=== PATIENT | female | born 1945 | race Caucasian/White ===

== ENCOUNTER 2021-03-13 13:45 | Observation (INO) ==
[2021-03-13] MEDS ORDERED: NS 500 ML IV 500 ML IV ONE ×2 (15:25→15:59)
[2021-03-13 16:01] LABS: BASOPHILS % (AUTO) 0.4 % (0.2-1.0); EOSINOPHILS % (AUTO) 0.3 % (0.9-2.9); HEMATOCRIT 42.2 % (36.0-47.0); HEMOGLOBIN 13.9 g/dL (12.0-16.0); LYMPHOCYTES # (AUTO) 1.1 X10^3/uL (1.3-2.9); LYMPHOCYTES % (AUTO) 24.1 % (21.0-51.0); MEAN CORPUSCULAR HGB CONC 32.8 g/dL (33.0-35.0); MEAN CORPUSCULAR VOLUME 88.4 fL (80.0-100.0); MEAN PLATELET VOLUME 8.4 fL (7.4-11.0); MONOCYTES # (AUTO) 0.5 x10^3/uL (0.3-0.8); NEUTROPHILS % (AUTO) 64.2 % (42.0-75.0); RED BLOOD COUNT 4.78 X10^6/uL (3.5-5.4); RED CELL DISTRIBUTION WIDTH 15.3 % (11.6-16.5); WHITE BLOOD COUNT 4.7 X10^3/uL (3.6-10.0)
--- NOTE | 2021-03-13 16:06 | DR.GENAD ---
HPI Time Seen Time Seen by Provider: 03/13/21 15:25 Complaint/Symptoms Chief Complaint Doctors Comments: 75 y/o female, started having altered mental status last pm. Was found by family very confused. Went to [facility], reportedly had a blood sugar in the 40's. Pt was d/c'd form there. Glucose has been up and down since. Takes 2 oral hypoglycemics, no insulin. Pt had Covid last week, overall doing better. Still with cough, productive of some mucous, has dyspnea at times. Still not right today, having more confusion than usual. Glucose was 47 this am, 235 this afternoon. Denies pain. No nausea, vomiting, abdominal pain, urinary difficultyies, N/V/D. COVID-19 Coronavirus risk:travel/contact w/high risk person: Yes Has patient experienced Coronavirus symptoms: Yes Coronavirus symptoms experienced: Shortness of Breath Nurses notes reviewed Nurses Notes Review: Yes Source History Provided: Patient and Family Member Mode of Arrival Mode of Arrival: Wheelchair PMH PMH Past Medical History: Dementia and Diabetes Past Medical History Comment: Frequent UTIs Surgical History: Hysterectomy Family History Family Medical History Comment: Non contributory Social History Does patient currently use any type of tobacco product: No Have you used tobacco products in the last 12 months: No Alcohol Use: None Do you use any recreational Drugs:: No Travel Risk Coronavirus risk:travel/contact w/high risk person: Yes Has patient experienced Coronavirus symptoms: Yes Coronavirus symptoms experienced: Shortness of Breath ROS Review of Systems Constitutional: Weakness Eyes: No Symptoms Reported ENTM: No Symptoms Reported Respiratoy: Productive Cough and Short of Breath Cardiovascular: No Symptoms Reported Gastrointestinal/Abdominal: No Symptoms Reported Genitourinary: No Symptoms Reported Neurological: Weakness Musculoskeletal: No Symptoms Reported Integumentary: No Symptoms Reported Hematologic/Lymphatic: No Symptoms Reported Psychiatric: No Symptoms Reported All Other Systems: Reviewed and Negative PE Vital Signs Vitals: Temperature 97.8 F Pulse Rate [Left Brachial] 62 Respiratory Rate 20 Blood Pressure [Left Arm] 166/72 O2 Sat by Pulse Oximetry 95 General General Appearance: Alert and In No Apparent Distress Head Head Exam: Normal Inspection Eyes Eye exam: Normal Appearance, PERRL and EOMI ENT ENT Exam: Normal Exam and Mucous Membranes Moist Nose Exam: Normal Nose Exam Mouth Exam: Normal Inspection Neck Neck Exam: Normal Inspection and Full ROM Chest Chest Inspection: Normal Inspection Respiratory Respiratory Exam: Normal Lung Sounds Bilat; negative Accessory Muscle Use and Respiratory Distress Respiratory Exam: Bilateral: Clear to Auscultation Cardiovascular Cardiovascular Exam: Regular Rate, Normal Rhythm and Normal Heart Sounds Abdominal Exam Abdominal Exam: Normal Inspection, Normal Bowel Sounds and Soft; negative Tenderness Extremities Extremities Exam: Normal Inspection and Full ROM; negative Edema Back Back Exam: Normal Inspection Neurologic Neurological Exam: Alert and CN II-XII Intact; negative Motor Sensory Deficit Psychiatric Psychiatric Exam: Normal Affect Skin Skin Exam: Warm and Dry MDM Differential Diagnosis Differential Diagnosis: CVA, electrolyte abn, hypoxia, UTI COURSE Treatment Treatment: 75 y/o female with altered mental status last pm, not as bad today, but still off. Glucose varying, reportedly low last pm, 47 this am , better after eating. W/u initiated. Given IV fluids. Will check baseline labs, CXR, head CT. 1821 - w/u overall acceptable. Ct of head without acute abnormalities. Labs overall acceptable. Discussed with her MD, Dr Max. Will admit for observation, will hold her diabetes meds. Pt is still + for Covid. ROR Labs Reviewed Laboratory Results Reviewed?: Yes Result Diagrams: 03/15/21 04:19 03/15/21 04:19 Laboratory: WBC 4.7 X10^3/uL (3.6-10.0) 03/13/21 15: RBC 4.78 X10^6/uL (3.5-5.4) 03/13/21 15:23 Hgb 13.9 g/dL (12.0-16.0) 03/13/21 15:23 Hct 42.2 % (36.0-47.0) 03/13/21 15:23 MCV 88.4 fL (80.0-100.0) 03/13/21 15:23 MCH 29.0 pg (27.0-34.0) 03/13/21 15: MCHC 32.8 g/dL (33.0-35.0) L 03/13/21 15:23 RDW 15.3 % (11.6-16.5) 03/13/21 15:23 Plt Count 294 X10^3/uL (150.0-450.0) 03/13/21 15: MPV 8.4 fL (7.4-11.0) 03/13/21 15:23 Neut % (Auto) 64.2 % (42.0-75.0) 03/13/21 15:23 Lymph % (Auto) 24.1 % (21.0-51.0) 03/13/21 15:23 [place] % (Auto) 11.0 % (0.0-13.0) 03/13/21 15:23 Eos % (Auto) 0.3 % (0.9-2.9) L 03/13/21 15:23 Baso % (Auto) 0.4 % (0.2-1.0) 03/13/21 15:23 Neut # (Auto) 3.0 x10^3/uL (2.2-4.8) 03/13/21 15:23 Lymph # (Auto) 1.1 X10^3/uL (1.3-2.9) L 03/13/21 15:23 [place] # (Auto) 0.5 x10^3/uL (0.3-0.8) 03/13/21 15:23 Eos # (Auto) 0.0 x10^3/uL (0.0-0.2) 03/13/21 15:23 Baso # (Auto) 0.0 X10^3/uL (0.0-0.1) 03/13/21 15: Absolute Nucleated RBC 0.1 /100WBC 03/13/21 15:23 Sodium 141 mmol/L (136-145) 03/13/21 15:23 Corrected Sodium 145 mmol/L (136-145) 03/13/21 15:23 Potassium 4.8 mmol/L (3.5-5.1) 03/13/21 15:23 Chloride 103 mmol/L (98-107) 03/13/21 15:23 Carbon Dioxide 27.3 mmol/L (21-32) 03/13/21 15:23 BUN 37 mg/dL (7-18) H 03/13/21 15:23 Creatinine 1.80 mg/dL (0.55-1.02) H 03/13/21 15:23 Est GFR (MDRD) Af Amer 35 (>60) L 03/13/21 15:23 Est GFR (MDRD) Non-Af 29 (>60) L 03/13/21 15:23 Glucose 248 mg/dL (65-99) H 03/13/21 15:23 Calcium 9.2 mg/dL (8.5-10.1) 03/13/21 15:23 Corrected Calcium 9.8 mg/dL (8.5-10.1) 03/13/21 15: Total Bilirubin 0.30 mg/dL (0.2-1.0) 03/13/21 15:23 AST 22 Units/L (15-37) 03/13/21 15:23 ALT 21 Units/L (12-78) 03/13/21 15:23 Alkaline Phosphatase 104 Units/L (46-116) 03/13/21 15: Total Protein 7.7 g/dL (6.4-8.2) 03/13/21 15: Albumin 3.3 g/dL (3.4-5.0) L 03/13/21 15:23 Globulin 4.4 g/dL (2.5-4.5) 03/13/21 15: Albumin/Globulin Ratio 0.8 Ratio (1.1-2.1) L 03/13/21 15:23 Specimen Type Clean catch urine 03/13/21 18:35 Urine Color Yellow (YELLOW) 03/13/21 18:35 Urine Appearance Clear (CLEAR) 03/13/21 18:35 Urine pH 5.0 (5.0 - 8.0) 03/13/21 18:35 Ur Specific [place] 1.015 (1.000-1.030) 03/13/21 18:35 Urine Protein 2+ (NEGATIVE) 03/13/21 18:35 Urine Glucose (UA) 4+ (NEGATIVE) 03/13/21 18:35 Urine Ketones Negative (NEGATIVE) 03/13/21 18:35 Urine Occult Blood 1+ (NEGATIVE) 03/13/21 18:35 Urine Nitrite Negative (NEGATIVE) 03/13/21 18:35 Urine Bilirubin Negative (NEGATIVE) 03/13/21 18:35 Urine Urobilinogen Normal (NORMAL) 03/13/21 18:35 Ur Leukocyte Esterase Negative (NEGATIVE) 03/13/21 18:35 Urine RBC None seen /HPF (0-3) 03/13/21 18:35 Urine WBC None seen /HPF (0-5) 03/13/21 18:35 Ur Squamous Epith Cells Negative /HPF (NEGATIVE) 03/13/21 18:35 Urine Bacteria Negative /HPF (NEGATIVE) 03/13/21 18:35 Ur Culture Indicated? No/not indicated 03/13/21 18:35 SARS CoV-2 RNA Rapid URMILA Positive (NEGATIVE) A 03/13/21 17:44 XRAY XRAY Interpreted by: Both X-ray Results: CT , CXR - both without acute abnpormalities. Opioid Opioid Risk Tool Age (Puneet box if 16-45): No History of Preadolescent Sexual Abuse: No Total: 0 Total Score Risk Category: Low Risk Copyright: [facility] predicting aberrant behaviors Diagnosis Discharge Problem: Hypoglycemia associated with type 2 diabetes mellitus Altered mental status Qualifiers: Altered mental status type: disorientation Qualified Code(s): R41.0 - Disorientation, unspecified Instructions Instructions: Type 2 Diabetes Mellitus, Diagnosis, Adult Confusion Diabetes Mellitus and Sick Day Management COVID-19 Frequently Asked Questions Prone Position Therapy Near-Syncope, [id number] 10 Things You Can Do to Manage Your COVID-19 Symptoms at Home - CDC (08/18/2019) COVID-19: Quarantine vs. Isolation - [facility] [place] (02/03/2020)
[2021-03-13 16:14] LABS: ALBUMIN 3.3 g/dL (3.4-5.0); CALCIUM 9.2 mg/dL (8.5-10.1); CARBON DIOXIDE 27.3 mmol/L (21-32); COR CA(FOR HYPOALB) 9.8 mg/dL (8.5-10.1); CREATININE 1.8 mg/dL (0.55-1.02); TOTAL PROTEIN 7.7 g/dL (6.4-8.2)
--- NOTE | 2021-03-13 16:35 | CT ---
HISTORYAMSSTUDYBRAIN W/O CONCOMPARISONNoneTECHNIQUEMultiple axial CT images of the head without contrast. Dose reduction techniques including Automated Exposure Control (AEC) and adjustment of mA and kV were utilized.FINDINGSNo visible intracranial hemorrhage or overt acute infarct. No ventriculomegaly or midline shift. Basal cisterns appear patent. Globes intact. Included paranasal sinuses and mastoid air cells appear aerated. Skull base and calvarium appear intact.IMPRESSIONNo acute intracranial finding.Electronically signed by: Aristeo Carrillo (Mar 13, 2021 16:34:23)
--- NOTE | 2021-03-13 16:53 | RAD ---
CHEST, 1 VIEWHISTORY: AMS, RECENT COVIDStudy: Single view of the chest.Comparison:NoneFindings:The cardiomediastinal silhouette is normal.No focal consolidations, pleural effusions or pneumothorax. Osseous structures demonstrate no acute abnormality.IMPRESSION:1. No acute cardiopulmonary process.Electronically signed by: CALVIN ALVES (Mar 13, 2021 16:52:00)
[2021-03-13 18:32] LABS: BILIRUBIN,URINE NEGATIVE (NEGATIVE); BLOOD/HEMOGLOBIN,URINE 1+ (NEGATIVE); GLUCOSE, URINE 4+ (NEGATIVE); KETONES,URINE NEGATIVE (NEGATIVE); LEUKOCYTE ESTERASE ,URINE NEGATIVE (NEGATIVE); NITRITES,URINE NEGATIVE (NEGATIVE); PROTEIN,URINE 2+ (NEGATIVE); UROBILINOGEN,URINE NORMAL (NORMAL)
[2021-03-13 18:35] LABS: APPEARANCE,URINE CLEAR (CLEAR); COLOR,URINE YELLOW (YELLOW)
[2021-03-13 19:15] LABS: BACTERIA,URINE NEGATIVE /HPF (NEGATIVE); RBC,URINE NONE SEEN /HPF (0-3); SQUAMOUS EPITHELIAL CELL,UR NEGATIVE /HPF (NEGATIVE)
[2021-03-13] MEDS ORDERED: PEPCID TAB 20 MG PO PRN (22:04)
[2021-03-13] MEDS ORDERED: D5 1/2 NS 1,000 ML 1,000 ML IV ONE (22:16)
[2021-03-13] MEDS: D5 1/2 NS 1,000 ML 1,000 ML IV SCH (22:25)
[2021-03-13 23:13] VITALS: BMI 29.2
[2021-03-13] MEDS ORDERED: NEURONTIN CAP 300 MG ONE (23:23)
[2021-03-13] MEDS ORDERED: ZOCOR TAB 40 MG PO ONE (23:23)
[2021-03-13] MEDS: ZOCOR TAB 40 MG PO SCH (23:37)
[2021-03-13] MEDS: NEURONTIN CAP 300 MG PO SCH (23:37)
[2021-03-14 06:16] LABS: BASOPHILS % (AUTO) 0.5 % (0.2-1.0); EOSINOPHILS % (AUTO) 1.1 % (0.9-2.9); HEMATOCRIT 36.2 % (36.0-47.0); LYMPHOCYTES # (AUTO) 1.7 X10^3/uL (1.3-2.9); LYMPHOCYTES % (AUTO) 36.9 % (21.0-51.0); MEAN CORPUSCULAR HGB CONC 33.1 g/dL (33.0-35.0); MEAN CORPUSCULAR VOLUME 87.7 fL (80.0-100.0); MEAN PLATELET VOLUME 8.5 fL (7.4-11.0); MONOCYTES # (AUTO) 0.5 x10^3/uL (0.3-0.8); MONOCYTES % (AUTO) 10.7 % (0.0-13.0); NEUTROPHILS # (AUTO) 2.3 x10^3/uL (2.2-4.8); NEUTROPHILS % (AUTO) 50.8 % (42.0-75.0); RED BLOOD COUNT 4.12 X10^6/uL (3.5-5.4); RED CELL DISTRIBUTION WIDTH 14.9 % (11.6-16.5); WHITE BLOOD COUNT 4.6 X10^3/uL (3.6-10.0)
[2021-03-14 06:47] LABS: ALANINE AMINOTRANSFERASE 17 Units/L (12-78); ALBUMIN 2.7 g/dL (3.4-5.0); ALKALINE PHOSPHATASE 82 Units/L (46-116); ASPARTATE AMINO TRANSFERASE 24 Units/L (15-37); BLOOD UREA NITROGEN 27 mg/dL (7-18); CALCIUM 8.3 mg/dL (8.5-10.1); CARBON DIOXIDE 26.4 mmol/L (21-32); CHLORIDE 105 mmol/L (98-107); COR CA(FOR HYPOALB) 9.3 mg/dL (8.5-10.1); CREATININE 1.17 mg/dL (0.55-1.02); SODIUM 141 mmol/L (136-145); TOTAL PROTEIN 6.3 g/dL (6.4-8.2); eGFR NON BLACK RACES 48 (>60)
[2021-03-14] MEDS ORDERED: PATIENT'S HOME MEDICATION (Levocetirizine 5 mg tablet) PO SCH (09:00)
[2021-03-14] MEDS: ARICEPT TAB 10 MG PO SCH (09:35)
[2021-03-14] MEDS: MOBIC TAB 15 MG PO SCH (09:35)
[2021-03-14] MEDS: PROCARDIA XL PO SCH (09:35)
[2021-03-14] MEDS: ZYLOPRIM PO SCH (09:35)
[2021-03-14] MEDS: LEXAPRO PO SCH (09:35)
[2021-03-14] MEDS: COLCRYS TAB 0.6 MG PO SCH (09:35)
[2021-03-14] MEDS: BROVANA IN SCH ×2 (09:45→20:00)
[2021-03-14] MEDS: PULMICORT NEB TX 0.5 MG NEB SCH ×2 (09:45→20:00)
[2021-03-14] MEDS ORDERED: D5 1/2 NS 1,000 ML 1,000 ML IV ONE (11:06)
[2021-03-14] MEDS: D5 1/2 NS 1,000 ML 1,000 ML IV SCH ×2 (11:13→16:44)
[2021-03-14] MEDS ORDERED: NS 250 ML IV 250 ML IV ONE (13:20)
[2021-03-14] MEDS ORDERED: ZITHROMAX INJ 500 MG VIAL IV ONE (13:20)
[2021-03-14] MEDS: ZITHROMAX INJ 500 MG VIAL 500 MG in NS 250 ML IV 250 ML IV SCH (13:29)
[2021-03-14] MEDS: ZOSYN VIAL 3.375 GRAMS 3.375 G in NS 100 ML IV + SPIKE MINIBAG* 100 ML IV SCH ×3 (16:46→21:35)
--- NOTE | 2021-03-14 17:56 | MRI ---
MR brain without contrastIndication: Altered mental statusCOMPARISONJan2021 CT head reviewedTECHNIQUEMultiplanar multisequence imaging through the brain without contrastFINDINGSNo focus of restricted diffusion is identified on DWI imaging. Corresponding ADC map is normal. Bone marrow signal is normal. Soft tissues of the visualized face show no unexpected abnormality. Upper cervical region is grossly normal where visualized. There is no acute intracranial hemorrhage, mass or mass effect. No extra-axial fluid collections identified. Vascular flow voids are normal. Orbits are normal. Paranasal sinuses mastoid air cells are relatively clear with trace fluid dependently in the right mastoid air cells. Mild mucosal thickening of the right maxillary sinus notedMild atrophy with minimal ex vacuo ventricular and sulcal enlargement noted.Periventricular white matter hyperintensity and scattered FLAIR hyperintensities in the cerebral white matter, most compatible with microangiopathic change. No gradient signal abnormality identified.IMPRESSION1. No acute intracranial infarction.2. Mild atrophic change and probable microangiopathic change white matter FLAIR hyperintensities noted.Electronically signed by: SHEREE GUERRA (Mar 14, 2021 17:54:17)
[2021-03-14] MEDS: NEURONTIN CAP 300 MG PO SCH (21:34)
[2021-03-14] MEDS: ZOCOR TAB 40 MG PO SCH (21:34)
--- NOTE | 2021-03-14 22:26 | MRI ---
EXAM: MRA OF THE HEAD/[place] OF WILLISHISTORY: Altered mental status.TECHNIQUE: Two-dimensional and three-dimensional [id number] MR angiography is performed in the usual fashion, without the administration of gadolinium. Maximum intensity projection images are projected in all planes.COMPARISON: Head CT dated March 13, 2021.FINDINGS:The intracranial ICA's including the carotid siphons, appear patent. The vertebrobasilar arteries are widely patent with antegrade blood flow.There is attenuated blood flow within the right A1 segment of the anterior cerebral artery, in keeping with congenital hypoplasia (anatomical variant), usually of no clinical significance. Adequate blood flow is seen within the right A2 segment of the anterior cerebral artery, secondary to collateral cross-filling from the left anterior cerebral artery via the anterior communicating artery.The [place] is otherwise intact. The visualized portions of the anterior, middle and posterior cerebral arteries are widely patent. There is no hemodynamically significant arterial stenosis seen.No aneurysm formation noted. (Note that cerebral MRA technique has limited sensitivity for aneurysms less than 5 mm.) No gross evidence for arteriovenous malformation is seen. For optimal evaluation of the peripheral, medium and small sized vessels, consider further investigation with a conventional angiogram if clinically warranted.IMPRESSION:1. No hemodynamically significant arterial stenosis or occlusion seen.2. 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
--- NOTE | 2021-03-15 00:58 | DR.H&P ---
H&P - History & Physical for Day of: H&P Date: 03/13/21 - Chief Complaint Chief Complaint: AMS - History of Present Illness History of Present Illness: Patient is a 75 year old white female who is being admitted due to AMS. Patient brought by daughter. History obtained from daughter. Daughter reports she was unable to get in contact with patient Friday, went to patients house, had to break in to get inside, found patient down, called EMS, EMS check BS and reported as 40s, patient was taken to ER, unknown time down but patient was confused when found. At ER no other treatment or testing performed per daughter and blood sugar was normal. Patiet had COVID last week and received Regeneron at [facility] on Friday. Patient reports improvement in symptoms. However patient and daughter report more confusion than before COVID over the past few days which is concernig to daughter. Patient states she has no recollection of Friday. Patient is aware at times that she is confused. Patient does have a history of dementia however this is worse and different than her normal symptoms per daughter. PCP Dr. Max (patient of [place] office). Will admit for further eval. Patient denies CP, or SOB at present. Denies changes in bowel or bladder. No other concerns at present. PMH DM, dementia, multiple other minor medical history. - Past Medical History Past Medical History: Dementia, Diabetes, Gout - Past Surgical History Surgical History: Hysterectomy - Family History Family Medical History: Diabetes Mellitus, Hypertension - Social History Does patient currently use any type of tobacco product: No Have you used tobacco products in the last 12 months: No Type of Tobacco Use: None Does any household member use tobacco: No Alcohol Use: None Drug Use: None - Medications Home Medications: No Known Drug Allergies Allergy (Verified 03/13/21 16:02) CONTINUE taking the following medications allopurinol 300 mg PO DAILY 03/13/21 [History] colchicine 0.6 mg PO DAILY 03/13/21 [History] dapagliflozin [Farxiga] 5 mg PO DAILY 03/13/21 [History] donepezil 10 mg PO DAILY 03/13/21 [History] escitalopram oxalate 10 mg PO DAILY 03/13/21 [History] famotidine 20 mg PO DAILY PRN 03/13/21 [History] gabapentin 300 mg PO HS 03/13/21 [History] glimepiride 4 mg PO BID 03/13/21 [History] levocetirizine 5 mg PO DAILY 03/13/21 [History] meloxicam 15 mg PO DAILY 03/13/21 [History] nifedipine 30 mg PO DAILY 03/13/21 [History] risperidone 0.5 mg PO HS 03/13/21 [History] simvastatin 40 mg PO HS 03/13/21 [History] - Review of Systems Constitutional: See HPI Eyes: See HPI ENT: See HPI Respiratory: See HPI Cardiovascular: See HPI Gastrointestinal: See HPI Genitourinary: See HPI Musculoskeletal: See HPI Skin: See HPI Neurological: See HPI - Physical Exam Vital Signs: Temperature 98.4 F Pulse Rate [Left Brachial] 65 Pulse Rate 60 Respiratory Rate 18 Blood Pressure [Left Arm] 151/64 O2 Sat by Pulse Oximetry 96 Oriented: Place (Alert but mildly confused about place and time. ) Eyes: Normal (PERRL) Ear: Normal Nose: Normal Throat: Normal Respiratory: Clear Throughout Cardiovascular: Normal : Normal Auscultation: Bowel Sounds: Normal Palpation: Normal Tenderness: Normal Skin: Normal Musculoskeletal: Normal Psychiatric: Normal Mood Description: Calm Affect: Normal Speech Pattern: Clear, Appropriate - Assessment/Plan (1) Altered mental status Qualifiers: Altered mental status type: disorientation Qualified Code(s): R41.0 - Disorientation, unspecified Status: Acute (2) COVID Status: Acute Plan: IV abx. Trend labs imaging and ABG. Cultures. Duo nebs. Remdesivir (3) Syncope Status: Acute Plan: MRI brain wo. MRA head. US carotids (4) Hypoglycemia associated with type 2 diabetes mellitus Status: Acute Plan: Acute on chronic. Resolved. Will resume glimeperide. Monitor glucose and may have to half current home dose. (5) Dementia Qualifiers: Alzheimer's disease onset: early-onset Status: Acute - Allergies Allergies/Adverse Reactions: Allergies Allergy/AdvReac Type Severity Reaction Status Date / Time No Known Drug Allergies Allergy Verified 03/13/21 16:02
[2021-03-15] MEDS ORDERED: REMDESIVIR 200 MG in NS 100 ML IV 140 ML IV ONE (01:04)
--- NOTE | 2021-03-15 01:58 | PCM.PROG ---
Progress Note - Progress Note for Day of Date of Exam: 03/14/21 - Subjective Subjective: Patient is a 75 year old white female who was admitted due to AMS/confusion, history of recent COVID. Confusion has improved per daughter however it is not at its baseline. Pending MRI and MRA and US carotids. No other concerns at present. - Past Medical Family Social History Past Med/Fam/Surg Hx: No changes since H&P Allergies: Allergies No Known Drug Allergies Allergy (Verified 03/13/21 16:02) - Review of Systems ROS: No change since H&P - Vital Signs and I&O's Vital Signs: Temperature 98.4 F Pulse Rate [Left Brachial] 65 Pulse Rate 60 Respiratory Rate 18 Blood Pressure [Left Arm] 151/64 O2 Sat by Pulse Oximetry 96 Intake and Output: Intake & Output 03/12/21 03/13/21 03/14/21 03/15/21 23:59 23:59 23:59 23:59 Intake Total 360 / 360 1692 / 1692 Output Total 200 / 200 Balance 360 / 360 1492 / 1492 - Physical Exam Oriented: Place (Alert but mildly confused about place and time. ) Eyes: Normal (PERRL) Ear: Normal Nose: Normal Throat: Normal Respiratory: Normal Cardiovascular: Normal : Normal Auscultation: Bowel Sounds: Normal Palpation: Normal Tenderness: Normal Skin: Normal Musculoskeletal: Normal Psychiatric: Normal Mood Description: Calm Affect: Normal Speech Pattern: Clear, Appropriate - Laboratory and Diagnostics Result Diagrams: 03/14/21 04:34 03/14/21 04:34 Labs: Laboratory WBC 4.6 X10^3/uL (3.6-10.0) 03/14/21 04:34 RBC 4.12 X10^6/uL (3.5-5.4) 03/14/21 04:34 Hgb 12.0 g/dL (12.0-16.0) 03/14/21 04:34 Hct 36.2 % (36.0-47.0) 03/14/21 04:34 MCV 87.7 fL (80.0-100.0) 03/14/21 04:34 MCH 29.0 pg (27.0-34.0) 03/14/21 04:34 MCHC 33.1 g/dL (33.0-35.0) 03/14/21 04:34 RDW 14.9 % (11.6-16.5) 03/14/21 04:34 Plt Count 251 X10^3/uL (150.0-450.0) 03/14/21 04:34 MPV 8.5 fL (7.4-11.0) 03/14/21 04:34 Neut % (Auto) 50.8 % (42.0-75.0) 03/14/21 04:34 Lymph % (Auto) 36.9 % (21.0-51.0) 03/14/21 04:34 [place] % (Auto) 10.7 % (0.0-13.0) 03/14/21 04:34 Eos % (Auto) 1.1 % (0.9-2.9) 03/14/21 04:34 Baso % (Auto) 0.5 % (0.2-1.0) 03/14/21 04:34 Neut # (Auto) 2.3 x10^3/uL (2.2-4.8) 03/14/21 04:34 Lymph # (Auto) 1.7 X10^3/uL (1.3-2.9) 03/14/21 04:34 [place] # (Auto) 0.5 x10^3/uL (0.3-0.8) 03/14/21 04:34 Eos # (Auto) 0.0 x10^3/uL (0.0-0.2) 03/14/21 04:34 Baso # (Auto) 0.0 X10^3/uL (0.0-0.1) 03/14/21 04:34 Absolute Nucleated RBC 0.1 /100WBC 03/14/21 04:34 Sodium 141 mmol/L (136-145) 03/14/21 04:34 Corrected Sodium TNP 03/14/21 04:34 Potassium 3.7 mmol/L (3.5-5.1) 03/14/21 04:34 Chloride 105 mmol/L (98-107) 03/14/21 04:34 Carbon Dioxide 26.4 mmol/L (21-32) 03/14/21 04:34 BUN 27 mg/dL (7-18) H 03/14/21 04:34 Creatinine 1.17 mg/dL (0.55-1.02) H 03/14/21 04:34 Est GFR (MDRD) Af Amer 58 (>60) L 03/14/21 04:34 Est GFR (MDRD) Non-Af 48 (>60) L 03/14/21 04:34 Glucose 108 mg/dL (65-99) H 03/14/21 04:34 POC Glucose (mg/dL) 149 mg/dL (65-99) H 03/14/21 21:21 Calcium 8.3 mg/dL (8.5-10.1) L 03/14/21 04:34 Corrected Calcium 9.3 mg/dL (8.5-10.1) 03/14/21 04:34 Total Bilirubin 0.20 mg/dL (0.2-1.0) 03/14/21 04:34 AST 24 Units/L (15-37) 03/14/21 04:34 ALT 17 Units/L (12-78) 03/14/21 04:34 Alkaline Phosphatase 82 Units/L (46-116) 03/14/21 04:34 Total Protein 6.3 g/dL (6.4-8.2) L 03/14/21 04:34 Albumin 2.7 g/dL (3.4-5.0) L 03/14/21 04:34 Globulin 3.6 g/dL (2.5-4.5) 03/14/21 04:34 Albumin/Globulin Ratio 0.8 Ratio (1.1-2.1) L 03/14/21 04:34 Specimen Type Clean catch urine 03/13/21 18:35 Urine Color Yellow (YELLOW) 03/13/21 18:35 Urine Appearance Clear (CLEAR) 03/13/21 18:35 Urine pH 5.0 (5.0 - 8.0) 03/13/21 18:35 Ur Specific [place] 1.015 (1.000-1.030) 03/13/21 18:35 Urine Protein 2+ (NEGATIVE) 03/13/21 18:35 Urine Glucose (UA) 4+ (NEGATIVE) 03/13/21 18:35 Urine Ketones Negative (NEGATIVE) 03/13/21 18:35 Urine Occult Blood 1+ (NEGATIVE) 03/13/21 18: Urine Nitrite Negative (NEGATIVE) 03/13/21 18:35 Urine Bilirubin Negative (NEGATIVE) 03/13/21 18:35 Urine Urobilinogen Normal (NORMAL) 03/13/21 18:35 Ur Leukocyte Esterase Negative (NEGATIVE) 03/13/21 18:35 Urine RBC None seen /HPF (0-3) 03/13/21 18:35 Urine WBC None seen /HPF (0-5) 03/13/21 18:35 Ur Squamous Epith Cells Negative /HPF (NEGATIVE) 03/13/21 18:35 Urine Bacteria Negative /HPF (NEGATIVE) 03/13/21 18:35 Ur Culture Indicated? No/not indicated 03/13/21 18:35 SARS CoV-2 RNA Rapid URMILA Positive (NEGATIVE) A 03/13/21 17:44 - Plan (1) Altered mental status Status: Acute Qualifiers: Altered mental status type: disorientation Qualified Code(s): R41.0 - Disorientation, unspecified (2) COVID Status: Acute Plan: IV abx. Trend labs imaging and ABG. Cultures. Duo nebs. Remdesivir (3) Syncope Status: Acute Plan: MRI brain wo. MRA head. US carotids (4) Hypoglycemia associated with type 2 diabetes mellitus Status: Acute Plan: Acute on chronic. Resolved. Will resume glimeperide. Monitor glucose and may have to half current home dose. (5) Dementia Status: Acute Qualifiers: Alzheimer's disease onset: early-onset
[2021-03-15] MEDS ORDERED: NS 1,000 ML IV 1,000 ML IV SCH (02:00)
[2021-03-15 05:20] LABS: ABG ALLEN TEST POS; ABG BASE EXCESS 1.1 mmol/L (-2.0-2.0); ABG HCO3 25.1 mmol/L (22-26)
[2021-03-15 05:26] LABS: BASOPHILS % (AUTO) 0.3 % (0.2-1.0); EOSINOPHILS # (AUTO) 0.1 x10^3/uL (0.0-0.2); EOSINOPHILS % (AUTO) 1.4 % (0.9-2.9); HEMATOCRIT 34.9 % (36.0-47.0); HEMOGLOBIN 11.5 g/dL (12.0-16.0); LYMPHOCYTES # (AUTO) 1.3 X10^3/uL (1.3-2.9); LYMPHOCYTES % (AUTO) 31.8 % (21.0-51.0); MEAN CORPUSCULAR HEMOGLOBIN 28.5 pg (27.0-34.0); MEAN CORPUSCULAR HGB CONC 32.8 g/dL (33.0-35.0); MEAN CORPUSCULAR VOLUME 86.7 fL (80.0-100.0); MEAN PLATELET VOLUME 8.1 fL (7.4-11.0); MONOCYTES # (AUTO) 0.3 x10^3/uL (0.3-0.8); MONOCYTES % (AUTO) 7.5 % (0.0-13.0); NEUTROPHILS # (AUTO) 2.5 x10^3/uL (2.2-4.8); RED BLOOD COUNT 4.02 X10^6/uL (3.5-5.4); RED CELL DISTRIBUTION WIDTH 14.9 % (11.6-16.5); WHITE BLOOD COUNT 4.2 X10^3/uL (3.6-10.0)
[2021-03-15 05:40] LABS: ALANINE AMINOTRANSFERASE 22 Units/L (12-78); ALBUMIN 2.6 g/dL (3.4-5.0); ALKALINE PHOSPHATASE 79 Units/L (46-116); ASPARTATE AMINO TRANSFERASE 24 Units/L (15-37); BLOOD UREA NITROGEN 17 mg/dL (7-18); CHLORIDE 104 mmol/L (98-107); COR CA(FOR HYPOALB) 9.1 mg/dL (8.5-10.1); SODIUM 140 mmol/L (136-145); eGFR NON BLACK RACES 51 (>60)
[2021-03-15] MEDS: ZOSYN VIAL 3.375 GRAMS 3.375 G in NS 100 ML IV + SPIKE MINIBAG* 100 ML IV SCH (06:26)
--- NOTE | 2021-03-15 07:11 | RAD ---
HISTORYFollow-up COVID-19STUDYChest AP [id number]/2022FINDINGSHear t size is normal. Kelly are normal. Lung jolly are clear. No pleural effusions are identified. Bony thorax is unremarkable.IMPRESSIONNo significant abnormality identifiedElectronically signed by: FERNY BENTON (Mar 15, 2021 07:09:30)
--- NOTE | 2021-03-15 07:34 | VAS ---
HISTORYAltered mental statusSTUDYCarotid sonogramTechnique: Multiple grayscale sonographic images were obtained. Color duplex Doppler evaluation was performed.COMPARISONNoneFINDINGSOn the right, no significant plaque was identified. Peak systolic velocity internal carotid artery 109 cm/second. ICA/CCA ratio 1.0. Flow in the right vertebral artery was antegrade. On the left, no significant plaque is identified. Peak systolic velocity internal carotid artery 99 cm/second. ICA/CCA ratio 0.94. Flow in the left vertebral artery was antegrade.IMPRESSIONNo evidence for hemodynamically significant stenosis on either sideElectronically signed by: FERNY BENTON (Mar 15, 2021 07:33:10)
[2021-03-15 08:46] VITALS: BP 143/57
[2021-03-15] MEDS ORDERED: LEXAPRO ONE (08:49)
[2021-03-15] MEDS: MOBIC TAB 15 MG PO SCH (08:52)
[2021-03-15] MEDS: ZYLOPRIM PO SCH (08:52)
[2021-03-15] MEDS: ARICEPT TAB 10 MG PO SCH (08:53)
[2021-03-15] MEDS: PROCARDIA XL PO SCH (08:53)
[2021-03-15] MEDS: LEXAPRO PO SCH (08:53)
[2021-03-15] MEDS: COLCRYS TAB 0.6 MG PO SCH (08:53)
[2021-03-15] MEDS: ZITHROMAX INJ 500 MG VIAL 500 MG in NS 250 ML IV 250 ML IV SCH (08:55)
[2021-03-15] MEDS ORDERED: AMARYL TAB 4 MG PO SCH (09:00)
[2021-03-15] MEDS: BROVANA IN SCH (09:28)
[2021-03-15] MEDS: PULMICORT NEB TX 0.5 MG NEB SCH (09:28)
[2021-03-15] MEDS ORDERED: SNACK - Diabetic Appropriate PO SCH (20:00)
[2021-03-16] MEDS ORDERED: REMDESIVIR 100 MG in NS 250 ML IV 250 ML IV SCH (09:00)
--- NOTE | 2021-04-22 22:10 | PCM.DCPLAN ---
Discharge Plan - Discharge Plan Hospital Course: Admit date 03/13/21 Discharge date 03/15/21 DOS: 03/15/21 Admit diagnosis(1) Altered mental status (2) COVID (3) Syncope (4) Hypoglycemia associated with type 2 diabetes mellitus (5) Dementia Discharge diagnosis Same Hospital Course Patient is a 75 year old white female who is being admitted due to AMS. Patient brought by daughter. History obtained from daughter. Daughter reports she was unable to get in contact with patient Friday, went to patients house, had to break in to get inside, found patient down, called EMS, EMS check BS and reported as 40s, patient was taken to [facility], unknown time down but patient was confused when found. At ER no other treatment or testing performed per daughter and blood sugar was normal. Patient had COVID last week and received Regener[facility] at [facility] on Friday. Patient reports improvement in symp toms. However patient and daughter report more confusion than before COVID over the past few days which is concerning to daughter. Patient states she has no recollection of Friday. Patient is aware at times that she is confused. Patient does have a history of dementia however this is worse and different than her normal symptoms per daughter. PCP Dr. Max (patient of [facility] office). Patient denies CP, or SOB at present. Denies changes in bowel or bladder. MRI, MRA, and ultrasound of carotids performed with infarcts or critical stenosis. Patient's mentation returned to baseline. CXR clear. Glucose remained normal. Patient was discharged home with home health and instructions to keep blood sugar diary and return to pcp. Low blood sugar was likely related to poor po intake that day. Discharge time >35 mins Disposition: HOME HEALTH SERVICE Condition: Stable Health Concerns: Post Hospitalization: new medications and changes needed to prevent readmission or further decline. Pt educated and given instructions on all concerns. Care Plan Goals: Problem: Infection Goal: Temperature within normal limits. Resolved infection. Instructions: Follow provided instructions. Follow up with primary physician as directed. Contact primary care physician or report to the closest Emergency Room if condition worsens. Plan of Treatment: Continue with present treatment and follow up plan. Pt is to keep follow up appointment as instructed and take medications as ordered. Assessment: No acute distress noted at discharge. Prescriptions: Continued allopurinol 300 mg tablet 300 mg PO DAILY colchicine 0.6 mg capsule 0.6 mg PO DAILY donepezil 10 mg tablet 10 mg PO DAILY escitalopram oxalate 10 mg tablet 10 mg PO DAILY famotidine 20 mg tablet 20 mg PO DAILY PRN Farxiga 5 mg tablet 5 mg PO DAILY gabapentin 300 mg capsule 300 mg PO HS glimepiride 4 mg tablet 4 mg PO BID levocetirizine 5 mg tablet 5 mg PO DAILY meloxicam 15 mg tablet 15 mg PO DAILY nifedipine 30 mg tablet extended release 24hr 30 mg PO DAILY risperidone 0.5 mg tablet 0.5 mg PO HS simvastatin 40 mg tablet 40 mg PO HS
== END 2021-03-15 11:25 | disposition home health service (06) ==
LOC: U 15:11 → ER 15:11 → U 22:40 → ICU 03-14 16:09
PROVIDERS: ADMIT Internal Medicine; ATTEND Internal Medicine
DX: R41.0 Disorientation, unspecified; E11.65 Type 2 diabetes mellitus with hyperglycemia; E11.649 Type 2 diabetes mellitus with hypoglycemia without coma; U07.1 COVID-19; R55 Syncope and collapse